=== PATIENT | female | born 1995 | race Caucasian/White ===

== ENCOUNTER 2016-11-08 09:07 | Emergency (ER) | payer BC ==
[2016-11-08 13:09] VITALS: BP 108/75
== END 2016-11-08 14:21 | disposition left against medical advice (07) ==
LOC: ED 09:07
DX: J02.9 Acute pharyngitis, unspecified (principal)

== ENCOUNTER 2018-01-29 14:31 | Emergency (ER) | payer BC, MEDICAID ==
[2018-01-29] MEDS ORDERED: Ibuprofen TAB* 600 MG PO ONE (15:24)
--- NOTE | 2018-01-29 16:07 | RAD ---
INDICATION: Left ankle pain after a fall down the stairs COMPARISON: Similar radiograph dated May 30, 2014 TECHNIQUE: 3 views of the left ankle were obtained. FINDINGS: The well corticated bones exhibit normal alignment. Joint spaces appear maintained. No fracture is seen. IMPRESSION: Normal ankle radiograph. If the patient's symptoms persist, follow-up imaging is recommended.
--- NOTE | 2018-01-29 16:57 | ED ---
Lower Extremity - HPI Summary HPI Summary: Patient here with left ankle pain since falling down steps last night. She does not recall exactly how she fell down the steps for reports she's had anterior ankle pain since. She is able to bear weight move ankle and denies numbness tingling and weakness here. Just reports she is tender with touch and it does hurt worse when she dorsi and plantar flexes. No previous injury to this ankle. Has not tried anything prior to arrival including ice or ibuprofen. Would like to try these now. - History of Current Complaint Chief Complaint: EDExtremityLower Stated Complaint: LT ANKLE INJURY Time Seen by Provider: 01/29/18 14:45 Hx Obtained From: Patient Hx Last Menstrual Period: ON DEPO Pain Intensity: 5 - Allergies/Home Medications Allergies/Adverse Reactions: Allergies Allergy/AdvReac Type Severity Reaction Status Date / Time No Known Allergies Allergy Verified 01/29/18 14:36 PMH/Surg Hx/FS Hx/Imm Hx Previously Healthy: Yes Endocrine/Hematology History: Denies: Hx Diabetes, Hx Thyroid Disease Cardiovascular History: Denies: Hx Hypertension Respiratory History: Denies: Hx Asthma, Hx Chronic Obstructive Pulmonary Disease (COPD) GI History: Denies: Hx Ulcer - Immunization History Immunizations Up to Date: Yes Infectious Disease History: No Infectious Disease History: Denies: Hx Hepatitis, Hx Human Immunodeficiency Virus (HIV), Traveled Outside the [place] in Last 30 Days - Family History Known Family History: Positive: Unknown - Pt is adopted - Social History Occupation: Employed Full-time - [employer] Lives: Dormitory/Roommates Alcohol Use: Occasionally Hx Substance Use: No Substance Use Type: Reports: None Hx Tobacco Use: Yes Smoking Status (MU): Light Every Day Tobacco Smoker Type: Cigarettes Review of Systems Positive: no symptoms reported Positive: Arthralgia. Negative: Decreased ROM, Edema Skin: Negative Neurological: Negative Psychological: Normal All Other Systems Reviewed And Are Negative: Yes Physical Exam Triage Information Reviewed: Yes Vital Signs On Initial Exam: Initial Vitals Temp Pulse Resp BP Pulse Ox 97.6 F 92 16 106/76 100 01/29/18 14:36 01/29/18 14:36 01/29/18 14:36 01/29/18 14:36 01/29/18 14:36 Vital Signs Reviewed: Yes Appearance: Positive: Well-Appearing, No Pain Distress, Well-Nourished Skin: Positive: Warm, Skin Color Reflects Adequate Perfusion, Dry - No erythema , no ecchymosis over affected area Head/Face: Positive: Normal Head/Face Inspection Eyes: Positive: EOMI ENT: Positive: Hearing grossly normal Respiratory/Lung Sounds: Positive: Breath Sounds Present Cardiovascular: Positive: Pulses are Symmetrical in both Upper and Lower Extremities. Negative: Leg Edema Left, Leg Edema Right Musculoskeletal: Positive: Strength/ROM Intact, Pain @ - Anterior ankle mortise and proximal metatarsals with mild tender to palpation along left foot and ankle -no edema, no gross deformity; lateral malleoli are nontender to palpation without edema; joint is without laxity Neurological: Positive: Normal, Sensory/Motor Intact, Alert, Oriented to Person Place, Time, CN Intact II-III Psychiatric: Positive: Normal Diagnostics - Vital Signs Vital Signs Temp Pulse Resp BP Pulse Ox 01/29/18 14:36 97.6 F 92 16 106/76 100 - Laboratory Lab Statement: Any lab studies that have been ordered have been reviewed, and results considered in the medical decision making process. Lower Extremity Course/Dx - Diagnoses Provider Diagnoses: Left ankle sprain Discharge - Sign-Out/Discharge Documenting (check all that apply): Discharge - Discharge Plan Condition: Stable Disposition: HOME Patient Education Materials: Ankle Sprain (ED) Referrals: No Primary Care Phys,NOPCP [Primary Care Provider] - - Billing Disposition and Condition Condition: STABLE Disposition: HOME
[2018-01-29 17:08] VITALS: BP 105/64
== END 2018-01-29 17:12 | disposition home or self-care (01) ==
LOC: ED 14:31
DX: S93.402A Sprain of unspecified ligament of left ankle, initial encounter (principal); W10.9XXA Fall (on) (from) unspecified stairs and steps, initial encounter; Y93.9 Activity, unspecified; Y92.9 Unspecified place or not applicable; F17.210 Nicotine dependence, cigarettes, uncomplicated
CPT/HCPCS: 99281; A9270-GY

== ENCOUNTER 2019-04-04 11:24 | Inpatient (IN) | payer OTHER ==
[2019-04-04] MEDS ORDERED: Lactated Ringers 1000 ML Bag* 1,000 ML IV ONE (13:06)
[2019-04-04] MEDS ORDERED: Buffered Lidocaine 1% SYRIN* 1 ML/SYRINGE INTRADERM ONE (13:06)
[2019-04-04] MEDS ORDERED: Misoprostol TAB* 100 MCG PO ONE (13:06)
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
[2019-04-04] MEDS ORDERED: Lactated Ringers 1000 ML Bag* 1,000 ML IV SCH ×2 (14:00→20:00)
[2019-04-04] MEDS ORDERED: Famotidine TAB* 20 MG PO PRN (14:40)
[2019-04-04] MEDS ORDERED: Lidocaine 2% VISCOUS* 15 ML UDC ONE (19:07)
[2019-04-04] MEDS ORDERED: Dibucaine 1% 28.35 GM TUBE PR PRN (19:17)
[2019-04-04] MEDS ORDERED: Glycerin ADULT SUPP PR PRN (19:17)
[2019-04-04] MEDS ORDERED: Acetaminophen TAB* 325 MG PO PRN (19:17)
[2019-04-04] MEDS ORDERED: Witch Hazel PAD* JAR TOPICAL PRN (19:17)
--- NOTE | 2019-04-04 19:17 | PROCNOTE ---
[facility] OB: Delivery Note - Delivery A Date of : 04/04/19 Time of : 19:01 Sex: Male Score 1 Minute: 9 Score 5 Minutes: 9 Gestational Age in Weeks and Days at Delivery: 38 Weeks and 4 Days Delivery Method: Spontaneous Vaginal Labor: Spontaneous Amniotic Fluid: Clear Estimated Blood Loss: 100 Anesthesia/Analgesia: Nitrous-Labor Delivered By: Sammi Stevenson - Nursery Level of Nursery: Regular/Bedside - Perineum Perineal Injury: Perineal Laceration, 1st Degree Perineal Repair: By Delivering Practioner - Events Delivery Events of Note: None Apply - Additional Delivery Notes Additional Delivery Notes: left nuchal arm
[2019-04-04] MEDS: Ibuprofen TAB* 600 MG PO PRN (19:36)
[2019-04-04] MEDS ORDERED: Simethicone TAB* 80 MG TAB.CHEW PO SCH (21:00)
[2019-04-05] MEDS: Ibuprofen TAB* 600 MG PO PRN ×3 (04:06→16:16)
[2019-04-05 07:20] LABS: ABS Basophils 0.1 10^3/ul (0-0.2); ABS Lymphocytes 2.4 10^3/ul (1.0-4.8); ABS Monocytes 0.5 10^3/ul (0-0.8); ABS Neutrophils 11.7 10^3/ul (1.5-7.7); Eosinophil % 0.3 %; Hematocrit 34 % (35-47); Hemoglobin 11.4 g/dL (12.0-16.0); Lymphocyte % 16.3 %; Mean Corpuscular HGB Conc 34 g/dL (31-36); Mean Corpuscular Hemoglobin 29 pg (27-31); Mean Corpuscular Volume 85 fL (80-97); Mean Platelet Volume 9.6 fL (7.4-10.4); Platelet Count 171 10^3/uL (150-450); Red Blood Count 3.94 10^6 /uL (3.70-4.87); Red Cell Distribution Width 14 % (10.5-15); White Blood Count 14.8 10^3/uL (3.5-10.8)
[2019-04-05] MEDS: Docusate CAP* 100 MG PO SCH ×5 (08:53→21:14)
[2019-04-05] MEDS ORDERED: Ferrous Gluconate TAB* 324 MG TAB PO SCH (09:00)
[2019-04-06] MEDS: Ibuprofen TAB* 600 MG PO PRN ×2 (01:45→11:42)
[2019-04-06 09:00] VITALS: BP 117/72
== END 2019-04-06 15:52 | disposition home or self-care (01) | DRG 560 ==
LOC: MCHOBOUT 11:24 → MCHOB 12:03
PROVIDERS: ADMIT Midwife; ATTEND Midwife
PROC: 10E0XZZ Delivery of Products of Conception, External Approach (ICD-10-PCS; principal; 2019-04-06)
PROC: 0HQ9XZZ Repair Perineum Skin, External Approach (ICD-10-PCS; 2019-04-06)
PROC: 4A1HXCZ Monitoring of Products of Conception, Cardiac Rate, External Approach (ICD-10-PCS; 2019-04-06)
DX: O69.82X0 Labor and delivery complicated by other cord entanglement, without compression, not applicable or unspecified (principal); Z37.0 Single live birth; O77.0 Labor and delivery complicated by meconium in amniotic fluid; O70.0 First degree perineal laceration during delivery; Z3A.38 38 weeks gestation of pregnancy
CPT/HCPCS: 36415; 85025; A9270-GY; S0191